=== PATIENT | female | born 1980 | race Caucasian/White ===

== ENCOUNTER 2020-11-06 18:34 | Emergency (ER) | payer MEDICAID, OTHER ==
[~2020-11-06 18:34] MED LIST: [UNRECOGNIZED DRUG - CODE] PO
[2020-11-06 20:52] LABS: BASOPHILS % (AUTO) 0.6 % (0.0-2.0); EOSINOPHILS % (AUTO) 2.9 % (1.0-6.0); HEMATOCRIT 35.3 % (36-46); HEMOGLOBIN 12.1 g/dL (12.0-16.0); LYMPHOCYTES # (AUTO) 2.5 K/uL (1.0-4.8); LYMPHOCYTES % (AUTO) 41.2 % (22.0-44.0); MEAN CORPUSCULAR HGB CONC 34.4 G/dL (31.0-37.0); MEAN CORPUSCULAR VOLUME 96 fL (80-100); MONOCYTES # (AUTO) 0.4 K/uL (0.1-1.0); MONOCYTES % (AUTO) 7.4 % (2.0-9.0); NEUTROPHILS # (AUTO) 2.9 K/uL (1.8-7.7); NEUTROPHILS % (AUTO) 47.9 % (40.0-70.0); PLATELET COUNT (AUTO) 185 K/uL (150-450); RED BLOOD CELL COUNT(AUTO) 3.69 MIL/uL (4.00-5.20); RED CELL DISTRIBUTION WIDTH 12.4 % (11.5-14.5)
[2020-11-06 21:02] LABS: ANION GAP 10 mmol/L (8-16); CARBON DIOXIDE 28 mmol/L (22-29); CHLORIDE 104 mmol/L (98-107); CREATININE 0.89 mg/dL (0.60-1.30); GLOMERULAR FILTR. RATE CALC > 60 mL/min (>60); GLUCOSE,RANDOM 135 mg/dL (70-110); POTASSIUM 3.6 mmol/L (3.5-5.1); SODIUM SERUM 142 mmol/L (136-145); UREA NITROGEN, BLOOD 13 mg/dL (7-18)
[2020-11-06 21:06] LABS: D-DIMER 0.19 mg/L FEU (0.00-0.50); INR 1.1 (0.9-1.1); PROTHROMBIN TIME 11.3 SEC (9.4-11.6)
[2020-11-06 21:13] LABS: ALANINE AMINOTRANSFERASE 24 U/L (12-78); ALBUMIN 3.9 g/dL (3.4-5.0); ALKALINE PHOSPHATASE 49 U/L (46-116); ASPARTATE AMINOTRANSFERASE 18 U/L (15-37); BILIRUBIN,TOTAL 0.3 mg/dL (0.1-1.0); HCG,QUANTITATIVE < 1 mIU/mL (0-6); TOTAL PROTEIN, SERUM 7.5 g/dL (6.4-8.2)
[2020-11-07] MEDS ORDERED: SODIUM CHLORIDE 0.9% 100 ML ONE (00:33)
[2020-11-07] MEDS ORDERED: IOVERSOL 350 MG/ML 150 ML VIAL ONE (00:33)
[2020-11-07 00:51] VITALS: BP 135/71
== END 2020-11-07 03:04 | disposition home or self-care (01) ==
LOC: EMS 18:47
DX: R20.2 Paresthesia of skin (principal); M79.89 Other specified soft tissue disorders; Z85.3 Personal history of malignant neoplasm of breast
CPT/HCPCS: 36415; 70470; 71260; 74177; 80053; 84702; 85025; 85379; 85610; 85730; 93926; 93971; 99285; J7050; Q9967; 72193; 74160

== ENCOUNTER 2020-12-18 09:12 | Emergency (ER) | payer MEDICAID ==
[~2020-12-18] VITALS: Ht 154.9 cm; Wt 61.8 kg
[2020-12-18 10:31] VITALS: BP 102/76
[2020-12-18 11:07] LABS: APPEARANCE,URINE CLOUDY (CLEAR); BILIRUBIN,URINE NEGATIVE (NEGATIVE); GLUCOSE, URINE (UA) NEGATIVE (NEGATIVE); KETONES,URINE NEGATIVE (NEGATIVE); LEUKOCYTE ESTERASE ,URINE LARGE (NEGATIVE); NITRATE,URINE NEGATIVE (NEGATIVE); OCCULT BLOOD,URINE SMALL (NEGATIVE); PROTEIN,URINE NEGATIVE (NEGATIVE); UROBILINOGEN,URINE 0.2 mg/dL (<=1.0)
[2020-12-18 11:20] LABS: BACTERIA,URINE Few /HPF (None Seen); RBC,URINE 0-2 /HPF (0-2); SQUAMOUS EPITHELIAL CELL,UR Few /LPF (None Seen)
== END 2020-12-18 10:33 | disposition home or self-care (01) ==
LOC: EMS 09:16
DX: N39.0 Urinary tract infection, site not specified (principal)
CPT/HCPCS: 81001; 81002; 87077; 87086; 87186; 99283

== ENCOUNTER 2021-01-13 11:46 | Emergency (ER) | payer MEDICAID ==
[~2021-01-13] VITALS: Ht 154.9 cm; Wt 62.7 kg
[2021-01-13] MEDS ORDERED: TAMO10 PO (11:50)
[2021-01-13 12:37] LABS: APPEARANCE,URINE CLEAR (CLEAR); BILIRUBIN,URINE NEGATIVE (NEGATIVE); GLUCOSE, URINE (UA) NEGATIVE (NEGATIVE); KETONES,URINE NEGATIVE (NEGATIVE); LEUKOCYTE ESTERASE ,URINE NEGATIVE (NEGATIVE); NITRATE,URINE NEGATIVE (NEGATIVE); OCCULT BLOOD,URINE TRACE (NEGATIVE); PH,URINE 6.5 (5.0-8.0); PROTEIN,URINE NEGATIVE (NEGATIVE); UROBILINOGEN,URINE 0.2 mg/dL (<=1.0)
[2021-01-13 12:58] LABS: BACTERIA,URINE None Seen /HPF (None Seen); RBC,URINE 0-2 /HPF (0-2); SQUAMOUS EPITHELIAL CELL,UR Few /LPF (None Seen); WBC,URINE 0-2 /HPF (0-5)
[2021-01-13 13:24] LABS: BASOPHILS % (AUTO) 0.6 % (0.0-2.0); EOSINOPHILS % (AUTO) 3.7 % (1.0-6.0); HEMATOCRIT 37.5 % (36-46); LYMPHOCYTES # (AUTO) 1.7 K/uL (1.0-4.8); LYMPHOCYTES % (AUTO) 28.9 % (22.0-44.0); MEAN CORPUSCULAR HGB CONC 34.5 G/dL (31.0-37.0); MEAN CORPUSCULAR VOLUME 96 fL (80-100); MONOCYTES # (AUTO) 0.4 K/uL (0.1-1.0); MONOCYTES % (AUTO) 6.6 % (2.0-9.0); NEUTROPHILS # (AUTO) 3.6 K/uL (1.8-7.7); NEUTROPHILS % (AUTO) 60.2 % (40.0-70.0); PLATELET COUNT (AUTO) 181 K/uL (150-450); RED BLOOD CELL COUNT(AUTO) 3.92 MIL/uL (4.00-5.20); RED CELL DISTRIBUTION WIDTH 13.3 % (11.5-14.5)
[2021-01-13] MEDS ORDERED: KETOROLAC TROMETHAMINE 30 MG/ML VIAL IVP ONE (13:30)
[2021-01-13] MEDS ORDERED: SODIUM CHLORIDE 0.9% 1,000 ML IV ONE (13:30)
[2021-01-13] MEDS ORDERED: ONDANSETRON HCL 4 MG/2 ML VIAL IVP ONE (13:30)
[2021-01-13 13:42] LABS: ANION GAP 10 mmol/L (8-16); CALCIUM, TOTAL 9.3 mg/dL (8.8-10.5); CARBON DIOXIDE 28 mmol/L (22-29); CHLORIDE 102 mmol/L (98-107); GLOMERULAR FILTR. RATE CALC > 60 mL/min (>60); GLUCOSE,RANDOM 104 mg/dL (70-110); SODIUM SERUM 140 mmol/L (136-145); UREA NITROGEN, BLOOD 13 mg/dL (7-18)
[2021-01-13 13:48] LABS: ALANINE AMINOTRANSFERASE 30 U/L (12-78); ALBUMIN 4.2 g/dL (3.4-5.0); ALKALINE PHOSPHATASE 52 U/L (46-116); ASPARTATE AMINOTRANSFERASE 16 U/L (15-37); BILIRUBIN,TOTAL 0.4 mg/dL (0.1-1.0); TOTAL PROTEIN, SERUM 7.7 g/dL (6.4-8.2)
[2021-01-13] MEDS ORDERED: ACETAMINOPHEN 325 MG TABLET PO ONE ×2 (17:00)
[2021-01-13 17:26] VITALS: BP 107/77
== END 2021-01-13 17:28 | disposition home or self-care (01) ==
LOC: EMS 11:48
DX: K80.20 Calculus of gallbladder without cholecystitis without obstruction (principal); R35.0 Frequency of micturition; Z91.040 Latex allergy status; Z85.3 Personal history of malignant neoplasm of breast
CPT/HCPCS: 36415; 74176; 76705; 80053; 81001; 81002; 81025; 84703; 85025; 96361; 96374; 96375; 99285; J1885; J2405; J7030

== ENCOUNTER 2022-03-05 14:48 | Inpatient (IN) | payer MEDICAID ==
[~2022-03-05] VITALS: Ht 162.6 cm; Wt 58.8 kg
[~2022-03-05 14:48] MED LIST changes: +TAMO10 PO; -[UNRECOGNIZED DRUG - CODE] PO
[2022-03-05 15:03] LABS: BASOPHILS % (AUTO) 0.5 % (0.0-2.0); EOSINOPHILS % (AUTO) 3.5 % (1.0-6.0); LYMPHOCYTES # (AUTO) 2.4 K/uL (1.0-4.8); LYMPHOCYTES % (AUTO) 42.9 % (22.0-44.0); MEAN CORPUSCULAR HEMOGLOBIN 31.6 pg (26.0-34.0); MEAN CORPUSCULAR HGB CONC 34.2 G/dL (31.0-37.0); MEAN CORPUSCULAR VOLUME 92 fL (80-100); MONOCYTES # (AUTO) 0.5 K/uL (0.1-1.0); MONOCYTES % (AUTO) 8.2 % (2.0-9.0); NEUTROPHILS # (AUTO) 2.5 K/uL (1.8-7.7); NEUTROPHILS % (AUTO) 44.9 % (40.0-70.0); PLATELET COUNT (AUTO) 216 K/uL (150-450); RED BLOOD CELL COUNT(AUTO) 3.79 MIL/uL (4.00-5.20); RED CELL DISTRIBUTION WIDTH 13.2 % (11.5-14.5)
[2022-03-05 15:24] LABS: ANION GAP 8 mmol/L (8-16); CALCIUM, TOTAL 9.1 mg/dL (8.8-10.5); CARBON DIOXIDE 26 mmol/L (22-29); CHLORIDE 105 mmol/L (98-107); CREATININE 0.63 mg/dL (0.60-1.30); GLOMERULAR FILTR. RATE CALC > 60 mL/min (>60); GLUCOSE,RANDOM 88 mg/dL (70-110); POTASSIUM 4.1 mmol/L (3.5-5.1); SODIUM SERUM 139 mmol/L (136-145); UREA NITROGEN, BLOOD 8 mg/dL (7-18)
[2022-03-05] MEDS ORDERED: ACETAMINOPHEN 325 MG TABLET PO ONE (15:30)
[2022-03-05] MEDS ORDERED: ONDANSETRON HCL 4 MG TABLET PO ONE (15:30)
[2022-03-05] MEDS ORDERED: MAG HYDROX/AL HYDROX/SIMETH 30 ML SUSP UDCUP PO ONE (15:30)
[2022-03-05] MEDS ORDERED: FAMOTIDINE 20 MG TABLET PO ONE (15:30)
[2022-03-05 15:33] LABS: ALANINE AMINOTRANSFERASE 28 U/L (12-78); ALBUMIN 3.9 g/dL (3.4-5.0); ALKALINE PHOSPHATASE 40 U/L (46-116); ASPARTATE AMINOTRANSFERASE 17 U/L (15-37); BILIRUBIN,TOTAL 0.4 mg/dL (0.1-1.0); HCG,QUANTITATIVE < 1 mIU/mL (0-6); LIPASE 125 U/L (73-393); TOTAL PROTEIN, SERUM 7.4 g/dL (6.4-8.2)
[2022-03-05 16:35] LABS: APPEARANCE,URINE HAZY (CLEAR); BILIRUBIN,URINE NEGATIVE (NEGATIVE); GLUCOSE, URINE (UA) NEGATIVE (NEGATIVE); KETONES,URINE NEGATIVE (NEGATIVE); LEUKOCYTE ESTERASE ,URINE NEGATIVE (NEGATIVE); NITRATE,URINE NEGATIVE (NEGATIVE); OCCULT BLOOD,URINE NEGATIVE (NEGATIVE); PROTEIN,URINE NEGATIVE (NEGATIVE); SPECIFIC GRAVITIY, URINE 1.012 (1.003-1.030); UROBILINOGEN,URINE <=1.0 mg/dL (<=1.0)
[2022-03-05] MEDS ORDERED: PIPERACILLIN/TAZO 3.375 GM/D5W 50 ML IV ONE (17:00)
[2022-03-05] MEDS ORDERED: MORPHINE SULFATE 2 MG/ML SYRINGE IVP ONE (17:00)
[2022-03-05 17:10] LABS: COVID AG,FIA SOURCE NASOPHARYNGEAL
[2022-03-05] MEDS ORDERED: MORPHINE SULFATE 2 MG/ML SYRINGE IVP PRN (17:30)
[2022-03-05] MEDS ORDERED: ONDANSETRON HCL 4 MG/2 ML VIAL IVP PRN (17:30)
[2022-03-05] MEDS ORDERED: ACETAMINOPHEN 325 MG TABLET PO PRN (17:30)
[2022-03-05] MEDS ORDERED: BISACODYL 10 MG RECTAL RECTAL SUPPOSITORY PR PRN (17:30)
[2022-03-05] MEDS ORDERED: SODIUM CHLORIDE 0.9% 1,000 ML IV ONE (17:30)
[2022-03-05] MEDS: PANTOPRAZOLE SODIUM 40 MG/VIAL IVP SCH (17:45)
[2022-03-05] MEDS: DOCUSATE SODIUM 100 MG CAPSULE PO SCH (21:00)
[2022-03-05 22:28] VITALS: BP 124/59
[2022-03-05] MEDS: PIPERACILLIN/TAZO 3.375 GM/D5W 50 ML IV SCH (23:48)
[2022-03-06 05:01] VITALS: BP 97/71
[2022-03-06] MEDS: PIPERACILLIN/TAZO 3.375 GM/D5W 50 ML IV SCH ×3 (06:05→18:26)
[2022-03-06 07:53] VITALS: BP 90/60
[2022-03-06] MEDS: DOCUSATE SODIUM 100 MG CAPSULE PO SCH ×2 (09:00→21:00)
[2022-03-06] MEDS: PANTOPRAZOLE SODIUM 40 MG/VIAL IVP SCH (09:45)
[2022-03-06 10:51] VITALS: BP 99/70
[2022-03-06] MEDS ORDERED: PROPOFOL 1% 20 ML VIAL IVP ONE (12:00)
[2022-03-06] MEDS ORDERED: ONDANSETRON HCL 4 MG/2 ML VIAL IVP ONE (12:00)
[2022-03-06] MEDS ORDERED: ROCURONIUM BROMIDE 10 MG/ML 5 ML VIAL IVP ONE (12:00)
[2022-03-06] MEDS ORDERED: ESMOLOL HCL 10 MG/ML 10 ML VIAL IVP ONE (12:00)
[2022-03-06] MEDS ORDERED: LIDOCAINE/PF 2% 5 ML VIAL IM ONE (12:00)
[2022-03-06] MEDS ORDERED: SODIUM CHLORIDE 0.9% 100 ML ONE (12:39)
[2022-03-06] MEDS ORDERED: SODIUM CHLORIDE 0.9% 1,000 ML ONE (12:50)
[2022-03-06] MEDS ORDERED: LIDOCAINE 2%/EPI 1:200,000/PF 20 ML VIAL ONE ×2 (12:51→16:51)
[2022-03-06] MEDS ORDERED: BUPIVACAINE 0.25%/EPI 1:200,000/PF 10 ML VIAL ONE ×2 (12:54)
[2022-03-06] MEDS ORDERED: IOHEXOL 240 MG/ML 50 ML VIAL ONE ×3 (13:34→16:50)
[2022-03-06] MEDS ORDERED: SUGAMMADEX SODIUM 200 MG/2 ML VIAL IVP ONE (14:49)
[2022-03-06] MEDS ORDERED: ACETAMINOPHEN 1000 MG/ISO-OSM 100 ML IV ONE (14:49)
[2022-03-06] MEDS ORDERED: BUPIVACAINE 0.25%/EPI 1:200,000/PF 10 ML VIAL PERC ONE ×2 (15:18→16:05)
[2022-03-06] MEDS ORDERED: ROCURONIUM BROMIDE 10 MG/ML 5 ML VIAL ONE (15:21)
[2022-03-06] MEDS ORDERED: HYDROmorphone 2 MG/ML VIAL IVP PRN ×2 (15:45→16:15)
[2022-03-06] MEDS ORDERED: FentaNYL CITRATE PF 100 MCG/2 ML VIAL IVP PRN (15:45)
[2022-03-06] MEDS ORDERED: RINGERS SOLUTION,LACTATED 1,000 ML IV ONE (15:46)
[2022-03-06] MEDS ORDERED: 0.9% SODIUM CHLORIDE 10 ML SYRINGE IVP PRN (16:15)
[2022-03-06] MEDS ORDERED: BISACODYL 10 MG RECTAL RECTAL SUPPOSITORY PR PRN (16:15)
[2022-03-06] MEDS ORDERED: ONDANSETRON HCL 4 MG/2 ML VIAL IVP PRN (16:15)
[2022-03-06] MEDS ORDERED: SENNA 187 MG TABLET PO PRN (16:15)
[2022-03-06] MEDS ORDERED: HYDROCODONE/ACETAMINOPHEN 5-325 MG TABLET PO PRN ×2 (16:15)
[2022-03-06] MEDS ORDERED: FentaNYL CITRATE PF 100 MCG/2 ML VIAL ONE (16:42)
[2022-03-06] MEDS ORDERED: ENOXAPARIN SODIUM 40 MG/0.4 ML PF SYRINGE SQ SCH (17:00)
[2022-03-06] MEDS ORDERED: ACETAMINOPHEN 325 MG TABLET PO SCH (18:00)
[2022-03-06] MEDS: ACETAMINOPHEN 500 MG TABLET PO SCH (18:26)
[2022-03-06] MEDS: OXYGEN THERAPY IH SCH (20:00)
[2022-03-06 20:51] VITALS: BP 129/61
[2022-03-07] MEDS: PIPERACILLIN/TAZO 3.375 GM/D5W 50 ML IV SCH ×3 (00:13→12:09)
[2022-03-07] MEDS: ACETAMINOPHEN 500 MG TABLET PO SCH ×3 (00:14→12:00)
[2022-03-07 00:32] VITALS: BP 118/60
[2022-03-07 05:02] VITALS: BP 111/62
[2022-03-07 06:30] VITALS: BP 124/68
[2022-03-07] MEDS ORDERED: MIDAZOLAM HCL 2 MG/2 ML VIAL IVP ONE (07:43)
[2022-03-07] MEDS: OXYGEN THERAPY IH SCH (08:00)
[2022-03-07 08:19] VITALS: BP 124/68
[2022-03-07] MEDS: PANTOPRAZOLE SODIUM 40 MG/VIAL IVP SCH (08:26)
[2022-03-07] MEDS: DOCUSATE SODIUM 100 MG CAPSULE PO SCH (08:27)
[2022-03-07] MEDS ORDERED: ENOXAPARIN SODIUM 40 MG/0.4 ML PF SYRINGE SQ SCH (09:00)
[2022-03-07] MEDS ORDERED: SODIUM CHLORIDE 0.9% 250 ML IV ONE (12:13)
[2022-03-07] MEDS ORDERED: ACET325T51 PO (12:55)
[2022-03-07 15:46] VITALS: BP 124/72
== END 2022-03-07 15:45 | disposition home or self-care (01) | DRG 263 ==
LOC: EMS 14:48 → 5S 17:27 → 6S 03-07 07:33
PROVIDERS: ADMIT Internal Medicine; ATTEND Internal Medicine
PROC: 0FT44ZZ Resection of Gallbladder, Percutaneous Endoscopic Approach (ICD-10-PCS; principal; 2022-03-06 15:03)
DX: K80.62 Calculus of gallbladder and bile duct with acute cholecystitis without obstruction (principal); Z20.822 Contact with and (suspected) exposure to COVID-19; Z85.3 Personal history of malignant neoplasm of breast; Z90.13 Acquired absence of bilateral breasts and nipples; Z91.040 Latex allergy status
CPT/HCPCS: 76705; 80053; 81003; 83690; 84702; 85025; 87040; 87081; 88300; 88304; 99285; C9113; G0378; J0131; J0690; J1650; J2250; J2270; J2405; J2543; J2704; J3010; J3490; J7030; J7050; J7120; Q0162; Q9966; Q9967

== ENCOUNTER 2022-06-04 14:31 | Emergency (ER) | payer MEDICAID ==
[~2022-06-04] VITALS: Ht 154.9 cm; Wt 57.3 kg
[~2022-06-04 14:31] MED LIST changes: +ACET325T51 PO; -TAMO10 PO; +TAMO10TA45 PO
[2022-06-04 14:34] VITALS: BP 101/68
[2022-06-04] MEDS ORDERED: ACET-2080 PO (15:52)
[2022-06-04] MEDS ORDERED: AMOX1TAB16 PO (15:52)
[2022-06-04] MEDS ORDERED: IBUP-1554 PO (15:52)
[2022-06-04] MEDS ORDERED: CEPHALEXIN MONOHYDRATE 500 MG CAPSULE PO ONE (16:00)
[2022-06-04] MEDS ORDERED: IBUPROFEN 600 MG TABLET PO ONE (16:00)
[2022-06-04] MEDS ORDERED: ACETAMINOPHEN/CODEINE 300-30 MG TABLET PO ONE (16:00)
== END 2022-06-04 16:17 | disposition home or self-care (01) ==
LOC: EMS 14:39
DX: K08.89 Other specified disorders of teeth and supporting structures (principal); K05.10 Chronic gingivitis, plaque induced; Z91.040 Latex allergy status; Z90.13 Acquired absence of bilateral breasts and nipples
CPT/HCPCS: 99283; 99284

== ENCOUNTER 2022-12-05 14:09 | Emergency (ER) | payer MEDICAID ==
[~2022-12-05] VITALS: Ht 157.5 cm; Wt 59.1 kg
[~2022-12-05 14:09] MED LIST changes: +ACET-2080 PO; -ACET325T51 PO; +AMOX1TAB16 PO; +IBUP-1554 PO
[2022-12-05] MEDS ORDERED: ONDANSETRON HCL 4 MG/2 ML VIAL IVP ONE (15:30)
[2022-12-05] MEDS ORDERED: SODIUM CHLORIDE 0.9% 2,000 ML IV ONE (15:30)
[2022-12-05] MEDS ORDERED: DIPHENOXYLATE/ATROP 2.5-0.025 MG TABLET PO ONE (15:30)
[2022-12-05] MEDS ORDERED: KETOROLAC TROMETHAMINE 30 MG/ML VIAL IVP ONE (15:30)
[2022-12-05] MEDS ORDERED: ACETAMINOPHEN 500 MG TABLET PO ONE (15:30)
[2022-12-05 15:59] LABS: BASOPHILS % (AUTO) 0.2 % (0.0-2.0); EOSINOPHILS % (AUTO) 0.9 % (1.0-6.0); HEMATOCRIT 45.6 % (36-46); HEMOGLOBIN 15.4 g/dL (12.0-16.0); LYMPHOCYTES # (AUTO) 0.2 K/uL (1.0-4.8); LYMPHOCYTES % (AUTO) 2.2 % (22.0-44.0); MEAN CORPUSCULAR HEMOGLOBIN 32.1 pg (26.0-34.0); MEAN CORPUSCULAR HGB CONC 33.7 G/dL (31.0-37.0); MEAN CORPUSCULAR VOLUME 95 fL (80-100); MONOCYTES # (AUTO) 0.4 K/uL (0.1-1.0); MONOCYTES % (AUTO) 3.6 % (2.0-9.0); NEUTROPHILS # (AUTO) 9.9 K/uL (1.8-7.7); NEUTROPHILS % (AUTO) 93.1 % (40.0-70.0); PLATELET COUNT (AUTO) 185 K/uL (150-450); RED BLOOD CELL COUNT(AUTO) 4.79 MIL/uL (4.00-5.20); RED CELL DISTRIBUTION WIDTH 12.7 % (11.5-14.5)
[2022-12-05 16:08] LABS: ANION GAP 8 mmol/L (8-16); CALCIUM, TOTAL 9.4 mg/dL (8.8-10.5); CARBON DIOXIDE 25 mmol/L (22-29); CHLORIDE 100 mmol/L (98-107); CREATININE 0.79 mg/dL (0.60-1.30); GLOMERULAR FILTR. RATE CALC > 60 mL/min (>60); GLUCOSE,RANDOM 135 mg/dL (70-110); POTASSIUM 4.2 mmol/L (3.5-5.1); SODIUM SERUM 133 mmol/L (136-145); UREA NITROGEN, BLOOD 18 mg/dL (7-18)
[2022-12-05 16:14] LABS: ALANINE AMINOTRANSFERASE 32 U/L (12-78); ALKALINE PHOSPHATASE 62 U/L (46-116); ASPARTATE AMINOTRANSFERASE 27 U/L (15-37); BILIRUBIN,TOTAL 0.7 mg/dL (0.1-1.0); LIPASE 104 U/L (73-393); TOTAL PROTEIN, SERUM 9.2 g/dL (6.4-8.2)
[2022-12-05] MEDS ORDERED: MORPHINE SULFATE 4 MG/ML SYRINGE IVP ONE (16:45)
[2022-12-05] MEDS ORDERED: ACET-2080 PO (16:47)
[2022-12-05] MEDS ORDERED: DIPH-654 PO (16:47)
[2022-12-05] MEDS ORDERED: ONDA-104 PO (16:47)
[2022-12-05 17:08] VITALS: BP 100/60
== END 2022-12-05 17:54 | disposition home or self-care (01) ==
LOC: EMS 14:28
DX: K52.9 Noninfective gastroenteritis and colitis, unspecified (principal); Z85.9 Personal history of malignant neoplasm, unspecified; Z90.49 Acquired absence of other specified parts of digestive tract; Z91.040 Latex allergy status
CPT/HCPCS: 99284; 96374; 96375; 96361; 80053; 83690; 84703; 85025; 36415; J1885; J2270; J2405; J7030

== ENCOUNTER 2022-12-07 09:25 | Emergency (ER) | payer MEDICAID ==
[~2022-12-07] VITALS: Ht 160 cm; Wt 56.8 kg
[~2022-12-07 09:25] MED LIST changes: +DIPH-654 PO; +ONDA-104 PO
[2022-12-07] MEDS ORDERED: DiphenhydrAMINE HCL 50 MG/ML VIAL IVP ONE (10:45)
[2022-12-07] MEDS ORDERED: METOCLOPRAMIDE HCL 5 MG/ML 2 ML VIAL IVP ONE (10:45)
[2022-12-07] MEDS ORDERED: KETOROLAC TROMETHAMINE 30 MG/ML VIAL IVP ONE (10:45)
[2022-12-07] MEDS ORDERED: SODIUM CHLORIDE 0.9% 1,000 ML IV ONE (10:45)
[2022-12-07 11:08] LABS: BASOPHILS % (AUTO) 0.6 % (0.0-2.0); EOSINOPHILS % (AUTO) 1.8 % (1.0-6.0); HEMATOCRIT 36.6 % (36-46); HEMOGLOBIN 12.8 g/dL (12.0-16.0); LYMPHOCYTES # (AUTO) 1.2 K/uL (1.0-4.8); LYMPHOCYTES % (AUTO) 35.1 % (22.0-44.0); MEAN CORPUSCULAR HEMOGLOBIN 32.7 pg (26.0-34.0); MEAN CORPUSCULAR HGB CONC 34.9 G/dL (31.0-37.0); MEAN CORPUSCULAR VOLUME 94 fL (80-100); MONOCYTES # (AUTO) 0.5 K/uL (0.1-1.0); MONOCYTES % (AUTO) 13.4 % (2.0-9.0); NEUTROPHILS # (AUTO) 1.7 K/uL (1.8-7.7); NEUTROPHILS % (AUTO) 49.1 % (40.0-70.0); PLATELET COUNT (AUTO) 140 K/uL (150-450); RED CELL DISTRIBUTION WIDTH 12.5 % (11.5-14.5)
[2022-12-07 11:10] LABS: COVID AG,FIA SOURCE NASAL SWAB
[2022-12-07 11:20] LABS: ANION GAP 7 mmol/L (8-16); CALCIUM, TOTAL 8.3 mg/dL (8.8-10.5); CARBON DIOXIDE 26 mmol/L (22-29); CHLORIDE 104 mmol/L (98-107); CREATININE 0.66 mg/dL (0.60-1.30); GLOMERULAR FILTR. RATE CALC > 60 mL/min (>60); GLUCOSE,RANDOM 94 mg/dL (70-110); POTASSIUM 4.4 mmol/L (3.5-5.1); SODIUM SERUM 137 mmol/L (136-145); UREA NITROGEN, BLOOD 9 mg/dL (7-18)
[2022-12-07 11:32] LABS: ALANINE AMINOTRANSFERASE 25 U/L (12-78); ALBUMIN 3.6 g/dL (3.4-5.0); ALKALINE PHOSPHATASE 36 U/L (46-116); ASPARTATE AMINOTRANSFERASE 25 U/L (15-37); BILIRUBIN,TOTAL 0.3 mg/dL (0.1-1.0); HCG,QUANTITATIVE < 1 mIU/mL (0-6)
[2022-12-07 12:08] LABS: ERYTHROCYTE SEDIMENTATION RATE 13 MM/HR (0-20)
[2022-12-07 13:05] VITALS: BP 92/58
== END 2022-12-07 13:18 | disposition home or self-care (01) ==
LOC: EMS 09:42
DX: R51.9 Headache, unspecified (principal); Z98.890 Other specified postprocedural states; Z91.040 Latex allergy status; Z20.822 Contact with and (suspected) exposure to COVID-19
CPT/HCPCS: 99284; 96374; 96375; 96361; 87426; 80053; 84702; 85025; 85651; 36415; J1200; J1885; J2765; J7030

== ENCOUNTER 2023-02-19 22:14 | Emergency (ER) | payer MEDICAID ==
[~2023-02-19] VITALS: Ht 157.5 cm; Wt 58.2 kg
[2023-02-19 22:40] VITALS: BP 101/67; PULSE 63; RESP 16; TEMP 98.3
== END 2023-02-20 12:12 | disposition home or self-care (01) ==
LOC: EMS 22:15
DX: R07.89 Other chest pain (principal); Z90.13 Acquired absence of bilateral breasts and nipples
CPT/HCPCS: 99281; Z7502

== ENCOUNTER 2023-05-06 12:34 | Emergency (ER) | payer MEDICAID ==
[~2023-05-06] VITALS: Ht 157.5 cm; Wt 59.1 kg
[2023-05-06 12:41] VITALS: BP 106/67; PULSE 67; RESP 16; TEMP 97.8
[2023-05-06] MEDS ORDERED: CEPHALEXIN MONOHYDRATE 500 MG CAPSULE PO ONE (13:30)
[2023-05-06] MEDS ORDERED: DiphenhydrAMINE HCL 25 MG CAPSULE PO ONE (13:30)
[2023-05-06] MEDS ORDERED: PredniSONE 20 MG TABLET PO ONE (13:30)
[2023-05-06] MEDS ORDERED: PRED-554 PO (13:30)
[2023-05-06] MEDS ORDERED: CEPH-558 PO (13:33)
[2023-05-06] MEDS ORDERED: DIPH-543 PO (13:33)
== END 2023-05-06 13:49 | disposition home or self-care (01) ==
LOC: EMS 12:41
DX: T78.40XA Allergy, unspecified, initial encounter (principal); Z90.13 Acquired absence of bilateral breasts and nipples; Z98.890 Other specified postprocedural states; Z91.040 Latex allergy status; X58.XXXA Exposure to other specified factors, initial encounter
CPT/HCPCS: 99284; J7512

== ENCOUNTER 2023-09-19 23:18 | Emergency (ER) | payer MEDICAID ==
[~2023-09-19] VITALS: Ht 154.9 cm; Wt 64.0 kg
[~2023-09-19 23:18] MED LIST changes: +CEPH-558 PO; +DIPH-1130 PO; +DIPH-543 PO; -DIPH-654 PO; +PRED-554 PO
[2023-09-19 23:38] LABS: COVID AG,FIA SOURCE NASAL SWAB
[2023-09-19 23:58] LABS: INFLUENZA TYPE A NEGATIVE FOR TYPE A (NEGATIVE); INFLUENZA TYPE B NEGATIVE FOR TYPE B (NEGATIVE)
[2023-09-20 00:13] LABS: SARS-COV2 (COVID) ANTIGEN,FIA Negative (Negative)
[2023-09-20] MEDS ORDERED: AMOX250C4 PO (01:36)
[2023-09-20] MEDS ORDERED: BENZ-227 PO (01:37)
[2023-09-20 01:46] VITALS: BP 123/73; PULSE 76; RESP 15; TEMP 99
== END 2023-09-20 01:49 | disposition home or self-care (01) ==
LOC: EMS 23:28
DX: J06.9 Acute upper respiratory infection, unspecified (principal); Z90.13 Acquired absence of bilateral breasts and nipples; Z91.040 Latex allergy status; Z98.890 Other specified postprocedural states; Z20.822 Contact with and (suspected) exposure to COVID-19
CPT/HCPCS: 87804; 99283

== ENCOUNTER 2024-01-07 21:06 | Emergency (ER) | payer OTHER ==
[~2024-01-07] VITALS: Ht 154.9 cm; Wt 70.0 kg
[~2024-01-07 21:06] MED LIST changes: +AMOX250C4 PO; +BENZ-227 PO
[2024-01-07 21:23] VITALS: TEMP 98.3
[2024-01-07 21:54] LABS: APPEARANCE,URINE HAZY (CLEAR); BILIRUBIN,URINE NEGATIVE (NEGATIVE); COLOR,URINE LIGHT YELLOW (YELLOW); GLUCOSE, URINE (UA) NEGATIVE (NEGATIVE); KETONES,URINE NEGATIVE (NEGATIVE); LEUKOCYTE ESTERASE ,URINE SMALL (NEGATIVE); NITRATE,URINE NEGATIVE (NEGATIVE); OCCULT BLOOD,URINE NEGATIVE (NEGATIVE); PH,URINE 6.5 (5.0-8.0); PROTEIN,URINE NEGATIVE (NEGATIVE); UROBILINOGEN,URINE <=1.0 mg/dL (<=1.0)
[2024-01-07 21:56] LABS: BASOPHILS % (AUTO) 1.1 % (0.0-2.0); EOSINOPHILS % (AUTO) 6.3 % (1.0-6.0); HEMATOCRIT 38.1 % (36-46); HEMOGLOBIN 13.1 g/dL (12.0-16.0); LYMPHOCYTES # (AUTO) 3.3 K/uL (1.0-4.8); LYMPHOCYTES % (AUTO) 44.4 % (22.0-44.0); MEAN CORPUSCULAR HEMOGLOBIN 32.6 pg (26.0-34.0); MEAN CORPUSCULAR HGB CONC 34.4 G/dL (31.0-37.0); MEAN CORPUSCULAR VOLUME 95 fL (80-100); MONOCYTES # (AUTO) 0.6 K/uL (0.1-1.0); MONOCYTES % (AUTO) 7.6 % (2.0-9.0); NEUTROPHILS # (AUTO) 3.1 K/uL (1.8-7.7); NEUTROPHILS % (AUTO) 40.6 % (40.0-70.0); PLATELET COUNT (AUTO) 200 K/uL (150-450); RED BLOOD CELL COUNT(AUTO) 4.02 MIL/uL (4.00-5.20); RED CELL DISTRIBUTION WIDTH 12.8 % (11.5-14.5); WHITE BLOOD COUNT (AUTO) 7.5 K/uL (4.5-11.0)
[2024-01-07 22:02] LABS: ANION GAP 10 mmol/L (8-16); CALCIUM, TOTAL 9.2 mg/dL (8.8-10.5); CARBON DIOXIDE 28 mmol/L (22-29); CHLORIDE 103 mmol/L (98-107); CREATININE 0.59 mg/dL (0.60-1.30); GLOMERULAR FILTR. RATE CALC > 60 mL/min (>60); GLUCOSE,RANDOM 97 mg/dL (70-110); POTASSIUM 3.9 mmol/L (3.5-5.1); SODIUM SERUM 140 mmol/L (136-145); UREA NITROGEN, BLOOD 11 mg/dL (7-18)
[2024-01-07 22:14] LABS: BACTERIA,URINE None Seen /HPF (None Seen); RBC,URINE None Seen /HPF (0-2); SQUAMOUS EPITHELIAL CELL,UR Many /LPF (None Seen)
[2024-01-07] MEDS: ACETAMINOPHEN 325 MG TABLET PO ONE (22:34)
[2024-01-07 22:36] LABS: ALANINE AMINOTRANSFERASE 24 U/L (12-78); ALKALINE PHOSPHATASE 52 U/L (46-116); ASPARTATE AMINOTRANSFERASE 18 U/L (15-37); BILIRUBIN,TOTAL 0.3 mg/dL (0.1-1.0); LIPASE 37 U/L (16-77); TOTAL PROTEIN, SERUM 7.5 g/dL (6.4-8.2)
[2024-01-08 00:14] VITALS: BP 114/65; PULSE 58; RESP 16
== END 2024-01-08 01:03 | disposition home or self-care (01) ==
LOC: EMS 21:06
DX: R10.32 Left lower quadrant pain (principal); Z85.9 Personal history of malignant neoplasm, unspecified; Z91.040 Latex allergy status
CPT/HCPCS: 76856; 80053; 81001; 83690; 84703; 85025; 99284